=== PATIENT | male | born 1980 | race Hispanic/Latino ===

== ENCOUNTER 2023-11-16 19:54 | Emergency (ER) | payer OTHER ==
[~2023-11-16] VITALS: Ht 175.3 cm; Wt 127.0 kg
[2023-11-16] MEDS ORDERED: NEO/5DRO4 OP (21:43)
[2023-11-16 22:05] VITALS: BP 120/78; PULSE 68; RESP 16; O2SAT 99
== END 2023-11-16 22:06 | disposition home or self-care (01) ==
LOC: EDH 19:54
DX: T15.91XA Foreign body on external eye, part unspecified, right eye, initial encounter (principal); T15.92XA Foreign body on external eye, part unspecified, left eye, initial encounter; X58.XXXA Exposure to other specified factors, initial encounter; Y93.89 Activity, other specified; Y92.89 Other specified places as the place of occurrence of the external cause; Y99.8 Other external cause status
CPT/HCPCS: 67938